=== PATIENT | female | born 2000 | race Caucasian/White ===

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

== ENCOUNTER 2021-04-23 11:59 | Emergency (ER) | payer OTHER, MEDICAID, SELFPAY ==
[2021-04-23 12:04] VITALS: BP 143/80; PULSE 100; RESP 20; TEMP 37.4; O2SAT 99
--- NOTE | 2021-04-23 12:35 | ED.GENADULT ---
HPI - General Adult General Chief complaint: Upper Respiratory Infection Stated complaint: Cough/Vomiting/ Dizziness Time Seen by Provider: 04/23/21 12:17 Source: patient and RN notes reviewed Mode of arrival: ambulatory Limitations: no limitations History of Present Illness HPI narrative: Patient presents today complaint of a 3 to 4-day history of nausea, vomiting, fever up to 101.6, sweats, cough, nasal congestion. Mother has recently been diagnosed with COVID-19. Patient has not been vaccinated against COVID-19. Last episode of vomiting was just prior to arrival and she has vomited twice today. Denies diarrhea, sore throat, rhinorrhea, abdominal pain. She has been taking Pepto-Bismol and NyQuil. Patient has been able to keep down some tuna and crackers prior to arrival. MD complaint: Nausea, vomiting, cough Related Data Home Medications Medication Instructions Recorded Confirmed cholecalciferol (vitamin D3) 125 mcg PO DAILY 10/02/20 10/02/20 [Dialyvite Vitamin D] pediatric multivitamin-iron 1 tablet PO DAILY 10/02/20 10/02/20 [Chew-vites/Iron] [id number] fum-folic [id number] See Rx Instructions .ROUTE .COMPLEX 10/02/20 10/02/20 [Daily ] Allergies Allergy/AdvReac Type Severity Reaction Status Date / Time No Known Allergies Allergy Verified 10/02/20 18:30 Review of Systems Review of Systems: CONSTITUTIONAL: Denies body aches, chills. + Fever, sweats EYES: Denies visual changes, redness, or discharge. ENT: Denies rhinorrhea, sore throat, or otalgia.+ Congestion CARDIOVASCULAR: Denies chest pain, palpitations, or edema. RESPIRATORY: Denies dyspnea.+ Congestion GASTROINTESTINAL: Denies abdominal pain, diarrhea.+ Nausea and vomiting GENITOURINARY: Denies dysuria or hematuria. SKIN: Denies rash, itching, or wounds. MUSCULOSKELETAL: Denies back pain, joint pain, or myalgia. NEUROLOGIC: Denies headache, numbness, tingling, or weakness. PSYCH: Denies depression or anxiety. [facility] Past Medical History Medical History Ear infection Urinary tract infection Surgical History Surgical History History of placement of ear tubes Family History Family History Mother Hypertension Grandparent Diabetes mellitus Social History Social History Smoking status: Never smoker Alcohol intake: never Substance use: never Gender identity (if verbalized by the patient): Female Comments At time of signature, I have reviewed and agree with nursing past medical, surgical, social and family history unless otherwise noted. Please see nursing chart for further information. There is no relevant family history pertinent to the presenting complaint Exam Narrative: GENERAL: Mildly ill-appearing, well-nourished, and in no acute distress. HEAD: Normocephalic, atraumatic. EYES: EOMI. No redness or drainage. Conjunctivae normal. ENT: Mucous membranes pink and moist. Nares clear. No rhinorrhea. TMs normal bilaterally. Throat normal. Uvula midline. NECK: Normal AROM. Supple. No lymphadenopathy. CHEST: No respiratory distress. Clear to auscultation. HEART: Regular rate and rhythm. No murmur appreciated. Normal peripheral pulses. EXTREMITIES: Normal range of motion. No edema. SKIN: Warm, dry, no rash. Capillary refill normal. Normal skin turgor. NEURO: No focal deficits. Alert and oriented x3. Gait steady. PSYCH: Normal affect. No signs of depression or anxiety. Course Vital Signs Vital signs: Vital Signs Temperature 99.4 F 04/23/21 12:04 Pulse Rate 100 04/23/21 12:04 Respiratory Rate 20 04/23/21 12:04 Blood Pressure 143/80 H 04/23/21 12:04 Pulse Oximetry 99 04/23/21 12:04 Temperature 99.4 F 04/23/21 12:04 Pulse Rate 100 04/23/21 12:0
== END 2021-04-23 12:45 | disposition home or self-care (01) ==
PROVIDERS: Emergency Provider Nurse Practitioner; PCP Family Medicine
DX: U07.1 COVID-19 (principal)
CPT/HCPCS: 87426; 99213; C9803; G0463